=== PATIENT | male | born 1945 | race Caucasian/White ===

== ENCOUNTER 2017-03-01 09:40 | Emergency (ER) | payer OTHER ==
[~2017-03-01] VITALS: Ht 182.9 cm; Wt 95.3 kg
[~2017-03-01 09:40] MED LIST: ACID CONTROL20 MG PO; ALBUTEROL0.63 MG/3 IH; AMBIEN5 MG PO; AMLODIPINE BESY10 MG PO; AMLODIPINE-BEN1 EACH PO; APRESOLINE25 MG PO; ASPIR-LOW81 MG PO; AZOR 10/20 M1 TABLET PO; BRILINTA90 MG PO; CALCIUM ACETAT667 M2 PO; CARVEDILOL6.25 MG PO; CATAPRES0.1 MG PO; COREG6.25 M1 PO; CRESTOR5 MG PO; DIOVAN160 MG PO; DRISDOL50000 UNIT PO; EMLA 30 GM30 GM TP; EXELON PATCH4.6 MG TD; EXTENDED PAIN650 MG PO; FLEXERIL5 MG PO; GLUCOVANCE 51 TABLET PO; GLYBURIDE-METF1 EAC3 PO; IMDUR30 MG PO; ISOSORBIDE MONO30 MG PO; LEVEMIR FL100 UNIT/1 SC; LEVOTHYROXINE100 MCG PO; LEXAPRO20 MG PO; LIPITOR20 MG PO; LIPITOR40 MG PO; LO-DOSE ASPIRIN81 M2 PO; LOTENSIN20 MG PO; MEMANTINE HCL5 MG PO; METFORMIN HCL1000 MG PO; METOPROLOL TART25 MG PO; MICRONASE5 MG PO; MOBIC15 MG PO; NITROSTAT0.4 MG SL; NOVOLIN,HU100 UNITS1 SC; NYSTATIN-TRIAMC15 GM TP; OMEPRAZOLE40 M1 PO; PERCOCET 5/31 TABLET PO; RANEXA500 MG PO; RENA-VITE RX T1 EACH PO; ROXICODONE5 MG PO; WELLBUTRIN75 MG PO
[2017-03-01 10:40] LABS: EOSINOPHIL COUNT 0.3 K/uL (0-0.3); HEMATOCRIT 32.7 % (38.0-50.0); IMMATURE GRANULOCYTE (%) 0.5 % (0.0-0.7); INSTRUMENT ABS NEUTROPHIL CT 4.5 K/uL; LYMPHOCYTE COUNT 1.9 K/uL (1.0-2.8); MCH 29.8 PG (29.0-34.0); MCHC 33.6 G/DL (30.0-36.0); MCV 88.6 FL (86-99); MEAN PLAT.VOLUME 10.1 uM^3 (9.0-12.4); MONOCYTE COUNT 0.7 K/uL (0-0.8); NEUTROPHIL (%) 60.3 % (45-76); NEUTROPHIL COUNT 4.5 K/uL (1.8-6.4); PLATELET COUNT 207 K/uL (156-360); RBC DIS.WIDTH-CV 12.7 % (11.8-14.6); RBC DIS.WIDTH-SD 41.7 % (39-53); RED BLOOD COUNT 3.69 M/uL (4.00-5.50); WHITE BLOOD COUNT 7.4 K/uL (4.1-10.2)
[2017-03-01 10:48] LABS: CHLORIDE 106 mEq/L (99-109); SODIUM 140 mEq/L (136-147)
[2017-03-01 10:50] LABS: GLUCOSE 133 mg/dL (70-99)
[2017-03-01 10:51] LABS: ANION GAP 8 MEQ/L (2-14)
[2017-03-01 10:54] LABS: GFR ESTIMATE (CALCULATED) > 59 mL/min/; UREA NITROGEN (BUN) 18 mg/dL (9-23)
[2017-03-01 11:00] LABS: TROP-I INTERPRETATION NEGATIVE; TROPONIN-I 0.01 ng/mL (0.0-0.30)
[2017-03-01 11:56] LABS: ADD MIUA? NO; BILIRUBIN NEGATIVE; BLOOD NEGATIVE; COLOR YELLOW ((YELLOW)); GLUCOSE (STRIP) 50; KETONES NEGATIVE; LEUKOCYTES NEGATIVE; NITRITE NEGATIVE; PROTEIN (STRIP) 30; SPECIFIC GRAVITY 1.014 (1.000-1.030); UCUL ADDED? NO
[2017-03-01 14:22] VITALS: BP 161/72
== END 2017-03-01 14:24 | disposition home or self-care (01) ==
LOC: EME 09:40
PROVIDERS: Personal Emergency Response Attendant
DX: H11.32 Conjunctival hemorrhage, left eye (principal); R41.82 Altered mental status, unspecified; F03.90 Unspecified dementia, unspecified severity, without behavioral disturbance, psychotic disturbance, mood disturbance, and anxiety; E78.5 Hyperlipidemia, unspecified; I10 Essential (primary) hypertension; I25.2 Old myocardial infarction; E11.9 Type 2 diabetes mellitus without complications; Z79.84 Long term (current) use of oral hypoglycemic drugs; Z95.5 Presence of coronary angioplasty implant and graft; Z88.7 Allergy status to serum and vaccine; Z87.891 Personal history of nicotine dependence
CPT/HCPCS: 70450; 80048; 81003; 84484; 85025; 93005; 99281; 99284